=== PATIENT | female | born 1975 | race Caucasian/White ===

== ENCOUNTER 2017-09-28 17:04 | Emergency (ER) | payer BC, MEDICAID ==
[~2017-09-28] VITALS: Ht 445.2 cm; Wt 142.0 kg
[~2017-09-28 17:04] MED LIST: ALBU8.5H8 IH; ARIP5TAB4 PO; AZIT250T PO; CLA10T PO; CYCL-1 PO; DULO-31 PO; HYDR-3095 PO; HYDR-3965 PO; HYDR25TA4 PO; LIDO700A5; ONDA8TAB9 PO; PROP10TA10 PO; VAL5T PO
[2017-09-28] MEDS ORDERED: dexamethasone sod phosphate 10mg/ml inj PO STA (18:37)
[2017-09-28] MEDS ORDERED: BACI1PAC7 TOP (18:39)
[2017-09-28] MEDS ORDERED: AZIT250T PO (18:39)
[2017-09-28 18:55] VITALS: BP 135/87
== END 2017-09-28 18:56 | disposition home or self-care (01) ==
LOC: ER 17:06
DX: J06.9 Acute upper respiratory infection, unspecified (principal); L73.1 Pseudofolliculitis barbae; G43.909 Migraine, unspecified, not intractable, without status migrainosus; E78.00 Pure hypercholesterolemia, unspecified; E11.9 Type 2 diabetes mellitus without complications; G89.29 Other chronic pain; I10 Essential (primary) hypertension; F15.90 Other stimulant use, unspecified, uncomplicated; F17.210 Nicotine dependence, cigarettes, uncomplicated; Z98.890 Other specified postprocedural states; Z88.0 Allergy status to penicillin; Z88.1 Allergy status to other antibiotic agents; Z90.710 Acquired absence of both cervix and uterus
CPT/HCPCS: 99283; 99406; J1100

== ENCOUNTER 2017-10-30 01:34 | Emergency (ER) | payer MEDICAID ==
[~2017-10-30] VITALS: Ht 177.8 cm; Wt 148.5 kg
[2017-10-30] MEDS ORDERED: iohexol 350MG/ML 100ml bottle IV ONE (02:16)
[2017-10-30] MEDS ORDERED: ketorolac trometh. 30mg/ml inj. IV ONE (04:00)
[2017-10-30 04:14] LABS: TROPONIN I < 0.04 NG/ML (0.0-0.05)
[2017-10-30 04:35] VITALS: BP 129/74
== END 2017-10-30 04:37 | disposition home or self-care (01) ==
LOC: ER 01:35
DX: I28.1 Aneurysm of pulmonary artery (principal); R16.1 Splenomegaly, not elsewhere classified; G43.909 Migraine, unspecified, not intractable, without status migrainosus; E78.00 Pure hypercholesterolemia, unspecified; E11.9 Type 2 diabetes mellitus without complications; G89.29 Other chronic pain; I11.0 Hypertensive heart disease with heart failure; I50.9 Heart failure, unspecified; F15.10 Other stimulant abuse, uncomplicated; Z90.710 Acquired absence of both cervix and uterus; Z88.0 Allergy status to penicillin; Z88.1 Allergy status to other antibiotic agents; Z88.8 Allergy status to other drugs, medicaments and biological substances; Z79.899 Other long term (current) drug therapy
CPT/HCPCS: 36415; 71275; 83880; 84484; 93005; 96374; 99285; J1885; J7030; Q9967

== ENCOUNTER 2017-12-25 18:01 | Emergency (ER) | payer MEDICAID ==
[~2017-12-25] VITALS: Ht 175.3 cm; Wt 149.0 kg
[2017-12-25 18:16] VITALS: BP 131/77
[2017-12-25 18:43] LABS: BASOPHILS # (AUTO) 0.2 X10'3 (0-0.2); BASOPHILS % (AUTO) 1.9 % (0-1); EOSINOPHILS # (AUTO) 0.2 X10'3 (0-0.9); EOSINOPHILS % (AUTO) 2.6 % (0-6); HEMATOCRIT 34.7 % (35.0-45.0); HEMOGLOBIN 12.1 g/dl (12.0-16.0); LYMPHOCYTES # (AUTO) 1.9 X10'3 (1.1-4.8); LYMPHOCYTES % (AUTO) 21.8 % (21-51); MEAN CORPUSCULAR HEMOGLOBIN 31.8 PG (27.0-31.0); MEAN CORPUSCULAR HGB CONC 34.8 % (33.0-36.5); MEAN CORPUSCULAR VOLUME 91.2 FL (78-98); MEAN PLATELET VOLUME 9.2 FL (7.4-10.4); MONOCYTES # (AUTO) 0.6 X10'3 (0-0.9); MONOCYTES % (AUTO) 6.7 % (2-12); NEUTROPHILS # (AUTO) 5.8 X10'3 (1.8-7.7); PLATELET COUNT 162 X10'3 (140-440); RED BLOOD COUNT 3.81 X10'6 (4.20-5.60); RED CELL DISTRIBUTION WIDTH 12.9 % (11.5-14.5); WHITE BLOOD COUNT 8.7 X10'3 (4.5-11.0)
[2017-12-25 18:56] LABS: PARTIAL THROMBOPLASTIN TIME 26 SECONDS (22-32)
[2017-12-25 19:03] LABS: ALANINE AMINOTRANSFERASE 35 U/L (12-78); ALBUMIN 3.3 G/DL (3.4-5.0); ALBUMIN/GLOBULIN RATIO 0.9 (1.1-1.5); ALKALINE PHOSPHATASE 133 IU/L (46-116); ANION GAP 7 (8-16); ASPARTATE AMINO TRANSFERASE 25 U/L (10-37); BILIRUBIN,TOTAL 0.5 MG/DL (0.1-1.0); BLOOD UREA NITROGEN 10 MG/DL (7-18); BUN/CREATININE RATIO 11.4 (6.6-38.0); CALCIUM 8.6 MG/DL (8.5-10.1); CHLORIDE 102 MMOL/L (99-107); CREATININE 0.88 MG/DL (0.40-0.90); GLUCOSE 106 MG/DL (70-104); POTASSIUM 3.7 MMOL/L (3.5-5.1); SODIUM 139 MMOL/L (135-145); TOTAL CARBON DIOXIDE 30.2 MMOL/L (24-32); TOTAL PROTEIN 6.9 G/DL (6.4-8.2); eGFR 70 ML/MIN
== END 2017-12-26 00:52 | disposition left against medical advice (07) ==
LOC: ER 18:01
DX: R51 Headache (principal); R07.89 Other chest pain; Z53.21 Procedure and treatment not carried out due to patient leaving prior to being seen by health care provider
CPT/HCPCS: 36415; 71045; 80053; 84484; 85025; 85610; 85730; 93005; 99281

== ENCOUNTER 2017-12-31 18:33 | Emergency (ER) | payer MEDICAID ==
[~2017-12-31] VITALS: Ht 175.3 cm; Wt 154.0 kg
[2017-12-31 19:31] LABS: BASOPHILS % (AUTO) 0.6 % (0-1); EOSINOPHILS # (AUTO) 0.2 X10'3 (0-0.9); EOSINOPHILS % (AUTO) 3.4 % (0-6); HEMATOCRIT 33.1 % (35.0-45.0); HEMOGLOBIN 11.6 g/dl (12.0-16.0); LYMPHOCYTES # (AUTO) 1.7 X10'3 (1.1-4.8); LYMPHOCYTES % (AUTO) 29.8 % (21-51); MEAN CORPUSCULAR HEMOGLOBIN 31.6 PG (27.0-31.0); MEAN CORPUSCULAR HGB CONC 34.9 % (33.0-36.5); MEAN CORPUSCULAR VOLUME 90.7 FL (78-98); MEAN PLATELET VOLUME 9.2 FL (7.4-10.4); MONOCYTES # (AUTO) 0.4 X10'3 (0-0.9); MONOCYTES % (AUTO) 7.2 % (2-12); NEUTROPHILS # (AUTO) 3.4 X10'3 (1.8-7.7); PLATELET COUNT 145 X10'3 (140-440); RED BLOOD COUNT 3.65 X10'6 (4.20-5.60); RED CELL DISTRIBUTION WIDTH 13.3 % (11.5-14.5); WHITE BLOOD COUNT 5.7 X10'3 (4.5-11.0)
[2017-12-31 19:42] LABS: PARTIAL THROMBOPLASTIN TIME 26 SECONDS (22-32)
[2017-12-31 19:47] LABS: ALANINE AMINOTRANSFERASE 56 U/L (12-78); ALBUMIN 3.3 G/DL (3.4-5.0); ALBUMIN/GLOBULIN RATIO 0.9 (1.1-1.5); ALKALINE PHOSPHATASE 157 IU/L (46-116); ANION GAP 7 (8-16); ASPARTATE AMINO TRANSFERASE 44 U/L (10-37); BILIRUBIN,TOTAL 0.4 MG/DL (0.1-1.0); BLOOD UREA NITROGEN 9 MG/DL (7-18); BUN/CREATININE RATIO 7.4 (6.6-38.0); CALCIUM 8.6 MG/DL (8.5-10.1); CHLORIDE 104 MMOL/L (99-107); CREATININE 1.22 MG/DL (0.40-0.90); GLUCOSE 98 MG/DL (70-104); POTASSIUM 4.4 MMOL/L (3.5-5.1); SODIUM 140 MMOL/L (135-145); TOTAL CARBON DIOXIDE 28.9 MMOL/L (24-32); TOTAL PROTEIN 6.9 G/DL (6.4-8.2); eGFR 48 ML/MIN
[2017-12-31] MEDS ORDERED: furosemide 20MG tablet PO ONE (21:30)
[2017-12-31] MEDS ORDERED: FURO-149 PO (21:50)
[2017-12-31] MEDS ORDERED: BACDS PO (21:50)
[2017-12-31] MEDS ORDERED: POTA20TA19 PO (21:50)
[2017-12-31] MEDS ORDERED: HYDR25TA4 PO (21:51)
[2017-12-31 22:24] VITALS: BP 137/75
[2017-12-31] MEDS ORDERED: ketorolac tromethamine 15mg/ml inj. IM ONE (22:30)
== END 2017-12-31 23:22 | disposition home or self-care (01) ==
LOC: ER 18:34
DX: R60.9 Edema, unspecified (principal); A49.02 Methicillin resistant Staphylococcus aureus infection, unspecified site; I50.9 Heart failure, unspecified; I11.0 Hypertensive heart disease with heart failure; E11.9 Type 2 diabetes mellitus without complications; E78.00 Pure hypercholesterolemia, unspecified; F17.210 Nicotine dependence, cigarettes, uncomplicated; F15.10 Other stimulant abuse, uncomplicated; G89.29 Other chronic pain; Z90.710 Acquired absence of both cervix and uterus; Z88.0 Allergy status to penicillin; Z88.1 Allergy status to other antibiotic agents; Z79.899 Other long term (current) drug therapy
CPT/HCPCS: 36415; 71045; 80053; 83880; 84484; 85025; 85610; 85730; 96372; 99285; J1885

== ENCOUNTER 2018-08-15 19:09 | Emergency (ER) | payer MEDICAID ==
[~2018-08-15] VITALS: Ht 172.7 cm; Wt 122.8 kg
[~2018-08-15 19:09] MED LIST changes: -ALBU8.5H8 IH; -ARIP5TAB4 PO; -AZIT250T PO; +CETI-102 PO; -CLA10T PO; -CYCL-1 PO; +FURO-149 PO; -HYDR-3095 PO; -HYDR-3965 PO; -LIDO700A5; -ONDA8TAB9 PO; -PROP10TA10 PO
[2018-08-15 20:59] LABS: INR 0.9 INR; PARTIAL THROMBOPLASTIN TIME 28 SECONDS (22-32); PROTHROMBIN TIME 9.4 SECONDS (9.0-12.0)
[2018-08-15 21:01] LABS: ALANINE AMINOTRANSFERASE 23 U/L (12-78); ALBUMIN 3.5 G/DL (3.4-5.0); ALBUMIN/GLOBULIN RATIO 0.9 (1.1-1.5); ALKALINE PHOSPHATASE 119 IU/L (46-116); ANION GAP 5 (8-16); ASPARTATE AMINO TRANSFERASE 14 U/L (10-37); BILIRUBIN,TOTAL 0.4 MG/DL (0.1-1.0); BLOOD UREA NITROGEN 11 MG/DL (7-18); CALCIUM 8.9 MG/DL (8.5-10.1); CHLORIDE 100 MMOL/L (99-107); CREATININE 0.92 MG/DL (0.40-0.90); GLUCOSE 84 MG/DL (70-104); POTASSIUM 3.5 MMOL/L (3.5-5.1); SODIUM 137 MMOL/L (135-145); TOTAL CARBON DIOXIDE 31.7 MMOL/L (24-32); TOTAL PROTEIN 7.4 G/DL (6.4-8.2); eGFR 67 ML/MIN
[2018-08-15 21:11] LABS: URINE AMPHETAMINE SCREEN NEGATIVE (Neg); URINE BARBITUATE SCREEN NEGATIVE (Neg); URINE BENZODIAZEPINES SCREEN NEGATIVE (Neg); URINE CANNABINOID SCREEN POSITIVE (Neg); URINE COCAINE SCREEN NEGATIVE (Neg); URINE METHADONE SCREEN NEGATIVE (Neg); URINE OPIATE SCREEN NEGATIVE (Neg); URINE PHENCYCLIDINE SCREEN NEGATIVE (Neg)
[2018-08-15] MEDS ORDERED: proCHLORperazine 10mg tablet PO ONE (21:20)
[2018-08-15 21:44] LABS: BASOPHILS % (AUTO) 0.3 % (0-1); EOSINOPHILS # (AUTO) 0.3 X10'3 (0-0.9); EOSINOPHILS % (AUTO) 2.4 % (0-6); HEMATOCRIT 38.5 % (35.0-45.0); HEMOGLOBIN 13.1 g/dl (12.0-16.0); LYMPHOCYTES # (AUTO) 2.8 X10'3 (1.1-4.8); LYMPHOCYTES % (AUTO) 22.4 % (21-51); MEAN CORPUSCULAR HEMOGLOBIN 31.8 PG (27.0-31.0); MEAN CORPUSCULAR HGB CONC 34.1 % (33.0-36.5); MEAN CORPUSCULAR VOLUME 93.4 FL (78-98); MEAN PLATELET VOLUME 9.9 FL (7.4-10.4); MONOCYTES # (AUTO) 0.8 X10'3 (0-0.9); MONOCYTES % (AUTO) 6.2 % (2-12); NEUTROPHILS # (AUTO) 8.5 X10'3 (1.8-7.7); NEUTROPHILS % (AUTO) 68.7 % (42-75); PLATELET COUNT 192 X10'3 (140-440); RED BLOOD COUNT 4.12 X10'6 (4.20-5.60); RED CELL DISTRIBUTION WIDTH 12.8 % (11.5-14.5); WHITE BLOOD COUNT 12.4 X10'3 (4.5-11.0)
[2018-08-15] MEDS ORDERED: benzonatate 100mg capsule PO ONE (22:20)
[2018-08-15] MEDS ORDERED: LEVO500T2 PO (22:23)
[2018-08-15] MEDS ORDERED: BENZ-16 PO (22:24)
[2018-08-15] MEDS ORDERED: levoFLOXACIN 750MG TABLET PO ONE (22:25)
[2018-08-15 22:34] VITALS: BP 103/58
== END 2018-08-15 22:44 | disposition home or self-care (01) ==
LOC: ER 19:09
DX: J06.9 Acute upper respiratory infection, unspecified (principal); G43.909 Migraine, unspecified, not intractable, without status migrainosus; I11.0 Hypertensive heart disease with heart failure; I50.9 Heart failure, unspecified; E78.00 Pure hypercholesterolemia, unspecified; E11.9 Type 2 diabetes mellitus without complications; G89.29 Other chronic pain; M06.9 Rheumatoid arthritis, unspecified; F15.90 Other stimulant use, unspecified, uncomplicated; Z98.890 Other specified postprocedural states; Z90.710 Acquired absence of both cervix and uterus; Z98.51 Tubal ligation status; Z88.1 Allergy status to other antibiotic agents; Z88.0 Allergy status to penicillin; Z79.899 Other long term (current) drug therapy
CPT/HCPCS: 36415; 71045; 80053; 80305; 83880; 84484; 85025; 85610; 85730; 93005; 99284

== ENCOUNTER 2019-03-27 08:34 | Emergency (ER) | payer MEDICAID ==
[~2019-03-27] VITALS: Ht 172.7 cm; Wt 113.7 kg
[~2019-03-27 08:34] MED LIST changes: +ASPI-1130 PO; +CARV-50 PO; -FURO-149 PO; +FURO80TA87 PO; -HYDR25TA4 PO; +LURA20TA PO; +NITR100C11 PO; +OXCA300T16 PO; +POTA20TA19 PO; +PROP20TA6 PO; +SIMV20TA5 PO; -VAL5T PO
[2019-03-27 08:40] VITALS: BP 128/84
[2019-03-27] MEDS ORDERED: prednisone 10mg tablet PO STA (09:08)
[2019-03-27] MEDS ORDERED: cyclobenzaprine 10mg tablet PO ONE (09:10)
[2019-03-27] MEDS ORDERED: predniSONE 20 mg tablet PO STA (09:12)
[2019-03-27] MEDS ORDERED: ACET-2119 PO (09:18)
[2019-03-27] MEDS ORDERED: PRED20TA PO (09:18)
[2019-03-27] MEDS ORDERED: acetaminophen 325mg tablet PO ONE (09:40)
== END 2019-03-27 09:47 | disposition home or self-care (01) ==
LOC: ER 08:34
DX: M54.40 Lumbago with sciatica, unspecified side (principal); M79.2 Neuralgia and neuritis, unspecified; G43.909 Migraine, unspecified, not intractable, without status migrainosus; I11.0 Hypertensive heart disease with heart failure; I50.9 Heart failure, unspecified; E78.00 Pure hypercholesterolemia, unspecified; E11.9 Type 2 diabetes mellitus without complications; I27.20 Pulmonary hypertension, unspecified; M06.9 Rheumatoid arthritis, unspecified; F12.90 Cannabis use, unspecified, uncomplicated; F15.90 Other stimulant use, unspecified, uncomplicated; G47.30 Sleep apnea, unspecified; M79.605 Pain in left leg; M79.672 Pain in left foot; Z90.710 Acquired absence of both cervix and uterus; Z98.51 Tubal ligation status; Z98.890 Other specified postprocedural states; Z90.89 Acquired absence of other organs; Z79.82 Long term (current) use of aspirin; Z88.0 Allergy status to penicillin; Z88.1 Allergy status to other antibiotic agents; Z88.5 Allergy status to narcotic agent; Z79.899 Other long term (current) drug therapy
CPT/HCPCS: 99284; J7512

== ENCOUNTER 2019-07-09 16:07 | Emergency (ER) | payer MEDICAID ==
[~2019-07-09] VITALS: Ht 175.3 cm; Wt 113.6 kg
[~2019-07-09 16:07] MED LIST changes: +SIMV-42 PO; -SIMV20TA5 PO
[2019-07-09] MEDS ORDERED: ketorolac trometh inj. 60 MG/2 ML VIAL IM ONE (18:25)
[2019-07-09 18:53] VITALS: BP 138/88
== END 2019-07-09 18:54 | disposition home or self-care (01) ==
LOC: ER 16:08
DX: M79.605 Pain in left leg (principal); G43.909 Migraine, unspecified, not intractable, without status migrainosus; E78.00 Pure hypercholesterolemia, unspecified; I10 Essential (primary) hypertension; E11.9 Type 2 diabetes mellitus without complications; G47.30 Sleep apnea, unspecified; G89.29 Other chronic pain; M06.9 Rheumatoid arthritis, unspecified; Z90.710 Acquired absence of both cervix and uterus; Z90.89 Acquired absence of other organs; Z98.51 Tubal ligation status; Z98.890 Other specified postprocedural states; Z88.1 Allergy status to other antibiotic agents; Z88.0 Allergy status to penicillin; Z88.5 Allergy status to narcotic agent; Z79.82 Long term (current) use of aspirin; Z79.899 Other long term (current) drug therapy
CPT/HCPCS: 96372; 99283; J1885

== ENCOUNTER 2024-01-09 15:21 | Emergency (ER) | payer SELFPAY ==
[~2024-01-09] VITALS: Ht 175.3 cm; Wt 92.5 kg
[~2024-01-09 15:21] MED LIST changes: -ASPI-1130 PO; +ASPI-1397 PO; -CETI-102 PO; +CETI-90 PO; -LURA20TA PO; +LURA20TA8 PO; +POTA-207 PO; -POTA20TA19 PO
[2024-01-09 15:33] VITALS: BP 134/82; PULSE 63; RESP 16; TEMP 97.8; O2SAT 99
[2024-01-09 16:16] LABS: BILIRUBIN,URINE NEGATIVE (Neg); CLARITY,URINE SLIGHTLY CLOUDY (Clear); COLOR,URINE YELLOW (Yellow); GLUCOSE, URINE NEGATIVE (Neg); KETONES,URINE NEGATIVE (Neg); LEUKOCYTE ESTERASE ,URINE NEGATIVE (Neg); NITRITES, URINE NEGATIVE (Neg); OCCULT BLOOD,URINE NEGATIVE (Neg); PH,URINE 5.5 (4.8-8.0); PROTEIN,URINE NEGATIVE (Neg); UROBILINOGEN,URINE 0.2 E.U/dL (0.2-1.0)
[2024-01-09 16:18] LABS: URINE HCG NEGATIVE (NEG)
[2024-01-09 16:31] LABS: UA COLLECTION TYPE CLN CATCH MIDSTREAM
[2024-01-09 16:35] LABS: BACTERIA,URINE 2+ /HPF (Neg); SQUAMOUS EPITHELIAL CELL,UR MANY /LPF (FEW); WBC,URINE 0-4 /HPF (0-4)
[2024-01-09 16:36] LABS: AMORPHOUS URATES 1+; RBC,URINE 0-2 /HPF (0-2)
== END 2024-01-09 20:52 | disposition left against medical advice (07) ==
LOC: ER 15:21
DX: R10.31 Right lower quadrant pain (principal); R30.9 Painful micturition, unspecified; Z53.21 Procedure and treatment not carried out due to patient leaving prior to being seen by health care provider
CPT/HCPCS: 81001; 81025